=== PATIENT | male | born 1945 | race Caucasian/White ===

== ENCOUNTER 2025-08-06 21:48 | Emergency (ER) | payer OTHER ==
[~2025-08-06] VITALS: Ht 175.3 cm; Wt 80.3 kg
--- NOTE | 2025-08-06 22:24 | ED.PDOC ---
History of Present Illness HPI Comments 79 y/o M is BIBA from private residence for c/c of shortness of breath and productive cough. Significant history for COPD I, DM II w/ neuropathy, HTN, PA, hypothyroidism, and tobacco cigarette and marijuana use. Patient endorses on 2x day history of progressively worsening symptoms, which began with a mild cough, initially. No recent known sick contacts, travel, or further pertinent events/lifestyle changes reported. Additional onset of nonradiating, midsternal chest tightness, this evening. He denies having any bloody sputum, nausea, vomiting, fever, chills, or further actue symptoms. Per EMS personnel report, patient was found with an on scene SpO2 of 95% on room air with rhonchi and wheezes in bilateral lung umaña and a blood glucose of 145. En route, he received 1x DuoNeb and an additional Albuterol breathing treatment, with SpO2 improving to 99% upon ED arrival. Chief Complaint: Shortness of Breath Time Seen by MD: 22:00 Reviewed Notes: Nurses Notes, Ripper Operator Notes, Medications, Allergies Allergies: Coded Allergies: NO KNOWN ALLERGIES (Unverified , 08/06/25) Information Source: Patient, Emergency Med Personnel Mode of Arrival: EMS Severity: Moderate Timing: Days Duration: Since onset Prehospital treatment: 12 Lead EKG, Breathing Tx, Library Circulation Department Chief, Oxygen Past Medical History PAST MEDICAL HISTORY: COPD (stage I ), DM (w/peripheral neuropathy ), HTN, PA, Thyroid (hypothyroidism ) Past Medical History (Other): Vertigo Surgical History: Cholecystectomy Surgical History (Other): cataract surgery right foot tumor removal Family History Family History: Reviewed,noncontributory to illness, No family hx of Cancer, No family hx of Heart elliott, No family hx of HTN, No family hx ofKidney elliott, No family hx of Liver elliott, No family hx of Lung elliott, No family hx of Stroke, Family hx of DM Social History Smoker: Cigarettes Alcohol: Denies ETOH Use Drugs: Marijuana Lives In: Home Constitutional: denies: chills, diaphoresis, fatigue, fever, malaise, sweats, weakness, others EENTM: denies: blurred vision, double vision, ear bleeding, ear discharge, ear drainage, ear pain, ear ringing, eye pain, eye redness, hearing loss, mouth pain, mouth swelling, nasal discharge, nose bleeding, nose congestion, nose pain , photophobia, tearing, throat pain, throat swelling, voice changes, others Respiratory: reports: cough, shortness of breath; denies: hemoptysis, orthopnea, SOB at rest, SOB with excertion, stridor, wheezing, others Cardiovascular: reports: chest pain; denies: dizzy spells, diaphoresis, Dyspnea on exertion, edema, irregular heart beat, left arm pain, lightheadedness, palpitations, PND, syncope, others Gastrointestinal: denies: abdomen distended, abdominal pain, blood streaked bowels, constipated, diarrhea, dysphagia, difficulty swallowing, hematemesis, melena, nausea, poor appetite, poor fluid intake, rectal bleeding, rectal pain, vomiting, others Genitourinary: denies: burning, dysuria, flank pain, frequency, hematuria, incontinence, penile discharge, penile sore, pain, testicle pain, testicle swelling, urgency, others Neurological: denies: dizziness, fainting, headache, left sided numbness, left sided weakness, numbness, paresthesia, pre-existing deficit, right sided numbness, right sided weakness, seizure, speech problems, tingling, tremors, weakness, others Musculoskeletal: denies: back pain, gout, joint pain, joint swelling, muscle pain, muscle stiffness, neck pain, others Integumetry: denies: bruises, change in color, change in hair/nails, dryness, laceration, lesions, lumps, rash, wounds, others Allergic/Immunocompromised: denies: Difficulty Healing, Frequent Infections, Hives, Itching, others Hematologic/Lymphatic: denies: anemia, blood clots, easy bleeding, easy bruising, swollen glands, others Endocrine: denies: excessive hunger, excessive sweating, excessive thirst, excessive urination, flushing, intolerance to cold, intolerance to heat, unexplained weight gain, unexplained weight loss, others Psychiatric: denies: anxiety, bipolar disorder, depression, hopeless, panic disorder, schizophrenia, sleepless, suicidal, others All Other Systems: Reviewed and Negative Physical Exam General Appearance: Moderate Distress HEENT: Normal ENT Inspection, Pharynx Normal, TMs Normal Neck: Full Range of Motion, Non-Tender, Normal, Normal Inspection Respiratory: Chest Non-Tender, No Accessory Muscle Use, No Respiratory Distress, Wheezing (bilateral lung umaña ) Cardiovascular: No Edema, No JVD, No Murmur, No Gallop, Normal Peripheral Pulses, Regular Rate/Rhythm Breast Exam: Deferred Gastrointestinal: No Organomegaly, Non Tender, No Pulsatile Mass, Normal Bowel Sounds, Soft Genitalia: Deferred Pelvic: Deferred Rectal: Deferred Extremities: No calf tenderness, Normal capillary refill, Normal inspection, Normal range of motion, Non-tender, No pedal edema Musculoskeletal : Apperance: Normal Neurologic: Alert, bank runner II-XII nml as Tested, No Motor Deficits, Normal Affect, Normal Mood, No Sensory Deficits Cerebellar Function: Normal Reflexes: Normal Skin: Dry, Normal Color, Warm Lymphatic: No Adenopathy Was a procedure done? Was a procedure done?: No EKG EKG : Pulse Rate (adult): 55 [place]: Normal Cardiac Rhythm: NSR Block: None Hypertrophy: None ST: Normal Differential Dx Considerations may include: Acute COPD exacerbation, URI, PNA, PA, PE, anxiety, among others X-Ray, Labs, Meds, VS Vital Signs Date Time Temp Pulse Resp B/P (MAP) Pulse Ox O2 Delivery O2 Flow Rate FiO2 08/06/25 22:33 17 96 Nasal Cannula* 3 32 08/06/25 22:30 98.0 60 17 169/63 (98) 97 98.0 08/06/25 22:25 20 89 Room Air* 0 21 08/06/25 22:24 55 08/06/25 22:11 55 08/06/25 21:58 97.9 53 22 168/75 99 97.9 Lab Test 08/06/25 23:20 08/06/25 23:17 08/06/25 22:16 Range/Units Troponin I High Sensitivity Pending 9 </=54 ng/L Influenza Type A Antigen Pending Influenza Type B Antigen Pending SARS-CoV-2 Antigen (Rapid) Pending White Blood Count 6.0 4.4-10.8 10^3/uL Red Blood Count 4.11 L 4.5-5.90 10^6/uL Hemoglobin 13.7 13.5-17.5 g/dL Hematocrit 39.7 L 41.0-53.0 % Mean Corpuscular Volume 96.6 80.0-100.0 fL Mean Corpuscular Hemoglobin 33.3 H 28.0-32.0 pg Mean Corpuscular Hemoglobin Concent 34.4 32.0-36.0 g/dL Red Cell Distribution Width 14.4 H 11.8-14.3 % Platelet Count 183 140-450 10^3/uL Mean Platelet Volume 8.2 6.9-10.8 fL Neutrophils (%) (Auto) 61.1 37.0-80.0 % Lymphocytes (%) (Auto) 25.8 10.0-50.0 % Monocytes (%) (Auto) 10.0 0.0-12.0 % Eosinophils (%) (Auto) 2.5 0.0-7.0 % Basophils (%) (Auto) 0.6 0.0-2.0 % Neutrophils # (Auto) 3.7 1.6-8.6 10 ^3/uL Lymphocytes # (Auto) 1.5 0.4-5.4 10 ^3/uL Monocytes # (Auto) 0.6 0-1.3 10 ^3/uL Eosinophils # (Auto) 0.2 0-0.8 10 ^3/uL Basophils # (Auto) 0 0-0.2 10 ^3/uL Nucleated Red Blood Cells 0.1 % Sodium Level 145 136-145 mmol/L Potassium Level 4.3 3.5-5.1 mmol/L Chloride Level 111 H 98-107 mmol/L Carbon Dioxide Level 24 20-31 mmol/L Anion Gap 10 5-15 Blood Urea Nitrogen 22 9-23 mg/dL Creatinine 1.49 H 0.700-1.30 mg/dL Glomerular Filtration Rate Calc 47 >90 mL/min BUN/Creatinine Ratio 14.8 10.0-20.0 Serum Glucose 136 H 74-106 mg/dL Calcium Level 9.7 8.7-10.4 mg/dL B-Type Natriuretic Peptide 203.15 0-100 pg/mL Current Medications Medications (Trade) Dose Ordered Sig/[facility] Route Start Time Stop Time Status Last Admin Methylprednisolone Sodium Succinate (Solu Medrol) 125 mg ONCE ONCE IV 08/06/25 22:15 08/06/25 22:16 DC 08/06/25 22:32 Ipratropium [place] (Atrovent Medneb) 1 mg ONCE ONCE N 08/06/25 22:15 08/06/25 22:16 DC 08/06/25 22:25 Albuterol (Ventolin Medneb) 20 mg ONCE ONCE [facility] 08/06/25 22:15 08/06/25 22:16 DC 08/06/25 22:25 PROCEDURE(s): CXRP - CHEST PORTABLE IMPRESSION: 1. No acute disease. The patient's CBC is within normal limits The chemistry panel is within normal limits The patient is BNP is 203.15 The troponin level is negative The patient was given Solu-Medrol 125 mg IV push The patient was given a continuous breathing treatment of albuterol and Atrovent. At this time, the patient's COVID test and influenza are pending We did speak with [facility] and they are going to be transfer the patient. The patient is currently on 3 L nasal cannula because the patient is somewhat hypoxic. The patient is authorization #[id number] The patient is being transferred Images Reviewed?: Images reviewed and evaluated by me Time of 1ST Reevaluation: 22:30 Reevaluation 1ST: Unchanged Patient Education/Counseling: Diagnosis, Treatment, Prognosis Family Education/Counseling: No Family Present SEPSIS Sepsis Screen Date sepsis recognized/suspect: Aug 06, 2025 Time Sepsis recognized/suspect: 2151 Recent Procedure: No On Antibiotic Therapy: No Respiratory Rate >20: No Heart Rate >90: No Temp<36 C (96.8 F) or >38.3 C: No SBP <90 or MAP <65 mmHG: No New Acute Mental Status Change: No Is the patient on CPAP, BIPAP,: No Physician Orders Urinalysis (08/06/25 22:05) Med Neb Initial Treatment (08/06/25 22:05) Chest Portable (08/06/25 22:05) Heplock Iv (08/06/25 22:05) Pulse Oximetry (08/06/25 22:05) Library Circulation Department Chief (08/06/25 22:05) Blood Pressure (08/06/25 22:05) Electrocardigram (08/06/25 22:05) Covid19 Antigen Angelique (08/06/25 ) Rapid Influenza A&B (08/06/25 22:05) Troponin-I Hs (08/06/25 23:05) Troponin-I Hs (08/07/25 01:05) Electrocardigram (08/06/25 23:05) Electrocardigram (08/07/25 01:05) Vital Signs Date Time Temp Pulse Resp B/P (MAP) Pulse Ox O2 Delivery O2 Flow Rate FiO2 08/06/25 22:33 17 96 Nasal Cannula* 3 32 08/06/25 22:30 98.0 60 17 169/63 (98) 97 98.0 08/06/25 22:25 20 89 Room Air* 0 21 08/06/25 22:24 55 08/06/25 22:11 55 08/06/25 21:58 97.9 53 22 168/75 99 97.9 Laboratory Tests Test 08/06/25 22:16 White Blood Count 6.0 10^3/uL (4.4-10.8) Medications Medications Dose Ordered Sig/Diane Route Start Time Stop Time Status Last Admin Dose Admin Albuterol 20 mg ONCE ONCE [facility] 08/06/25 22:15 08/06/25 22:16 DC 08/06/25 22:25 Ipratropium [place] 1 mg ONCE ONCE [facility] 08/06/25 22:15 08/06/25 22:16 DC 08/06/25 22:25 Methylprednisolone Sodium Succinate 125 mg ONCE ONCE IV 08/06/25 22:15 08/06/25 22:16 DC 08/06/25 22:32 Departure 1 Departure Time of Disposition: 23:52 Impression: Primary Impression: Acute respiratory failure Qualified Codes: J96.01 - Acute respiratory failure with hypoxia Additional Impression: COPD exacerbation Disposition: 51 HOSPICE/MEDICAL FACILITY Condition: Fair Critical Care Note Critical Care Time?: Yes (45 min-critical care time only) Stability Stability form required: Yes Stable for transfer: Intended for transfer (Health plan request transfer), To designated facility Heart Score Heart Score: Heart Score Response (Comments) Value History Moderate Suspicious 1 EKG Normal 0 Age >65 2 Risk Factors >3 or Hx ASHD 2 Troponin Normal limit 0 Total 5 I personally scribed for YOBANY THORPE MD ([email or web address]) on 08/06/25 at 22:24. Electronically submitted by Johann Lucia ([email or web address]). I personally scribed for YOBANY THORPE MD ([email or web address]) on 08/06/25 at 23:26. Electronically submitted by Johann Lucia ([email or web address]). YOBANY THORPE MD Aug 06, 2025 22:24
[2025-08-06] MEDS: IPRATROPIUM BROM 0.5 MG/2.5ML INH SOL HHN ONE (22:25)
[2025-08-06] MEDS: ALBUTEROL SULF 2.5 MG/0.5ML(0.5%) NEB SOLN HHN ONE (22:25)
[2025-08-06] MEDS: methylPREDNISolone SOD SUCC 125 MG/2 ML VL IV ONE (22:32)
[2025-08-06 22:33] VITALS: RESP 17; O2SAT 96
[2025-08-06 22:51] LABS: Hematocrit 39.7 % (41.0-53.0); Hemoglobin 13.7 g/dL (13.5-17.5); Mean Corpuscular Hemoglobin 33.3 pg (28.0-32.0); Mean Corpuscular Volume 96.6 fL (80.0-100.0); Nucleated Red Blood Cells % 0.1 %
--- NOTE | 2025-08-06 22:53 | DVH ---
CHEST RADIOGRAPH Indication: sob Technique: Single frontal view of the chest was obtained COMPARISON: None FINDINGS: Lines and Tubes: None Lungs: Clear Pleura: No effusion. No pneumothorax. Cardiomediastinal contours: Unremarkable Bones: Unremarkable IMPRESSION: 1. No acute disease.
[2025-08-06 23:00] LABS: Potassium 4.3 mmol/L (3.5-5.1); Sodium 145 mmol/L (136-145)
[2025-08-06 23:01] LABS: Anion Gap 10 (5-15); Calcium 9.7 mg/dL (8.7-10.4); Carbon Dioxide 24 mmol/L (20-31); Chloride 111 mmol/L (98-107)
[2025-08-06 23:06] LABS: BUN/Creatinine Ratio 14.8 (10.0-20.0); Blood Urea Nitrogen 22 mg/dL (9-23); Glucose 136 mg/dL (74-106)
[2025-08-07 00:36] LABS: COVID19 ANTIGEN SOFIA FIA NEGATIVE (NEGATIVE)
[2025-08-07 00:55] VITALS: BP 149/58; PULSE 74; RESP 17; TEMP 98.6; O2SAT 97
--- NOTE | 2025-08-08 07:43 | ECG ---
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
== END 2025-08-07 01:02 | disposition short-term general hospital (02) ==
LOC: EDBD 21:48 → EDUNIT# 21:48 → ER 21:48
DX: J96.00 Acute respiratory failure, unspecified whether with hypoxia or hypercapnia (principal); J44.1 Chronic obstructive pulmonary disease with (acute) exacerbation; I10 Essential (primary) hypertension; E11.9 Type 2 diabetes mellitus without complications; E03.9 Hypothyroidism, unspecified; F17.210 Nicotine dependence, cigarettes, uncomplicated; I25.2 Old myocardial infarction; Z20.822 Contact with and (suspected) exposure to COVID-19; Z90.49 Acquired absence of other specified parts of digestive tract; Z98.49 Cataract extraction status, unspecified eye
CPT/HCPCS: 36415; 71045; 80048; 83880; 84484; 85025; 87426; 87804; 93005; 94640; 96374; 99291; J2919